=== PATIENT | female | born 1960 | race Caucasian/White ===

== ENCOUNTER 2016-12-22 23:30 | Emergency (ER) | payer OTHER ==
--- NOTE | ~2016-12-22 | CR21 ---
[facility]. [facility] A Service of [facility] & [facility] RADIOLOGY TEXT RESULTS PATIENT: WILD GAMEZ LOCATION: SED : 58 UNIT #: [id number] AGE: [address]: ANGEL LUIS LOAIZA PA-C SEX: F ORDER DR: [id number] [address] [address] [id number] E MR#: [id number] Acc #: [id number] NAME: WILD GAMEZ : 1960 SEX: F STUDY DATE/TIME: 12/23/2016 0:48 UNIT: SED ROOM: STUDY DESCRIPTION: CR Ankle Min 3 Views Rt Attending Physician: Angel Luis Loaiza Pa-C Ordering Physician: Angel Luis Loaiza Pa-C Primary Care Physician: Nelson Doe M.D. MEDICAL IMAGING REPORT This report is preliminary unless electronic signature is present. EXAM Right ankle series, 12/23/2016 HISTORY 56-year-old female in the ED with right ankle pain and swelling after injury. Fell down steps at 10:30 p.m. yesterday. TECHNIQUE Three-view right ankle series. FINDINGS Mild lateral soft tissue swelling. The exam is otherwise negative. No visible fracture, dislocation or other osseous abnormality. IMPRESSION Lateral soft tissue swelling. Right ankle series is otherwise negative. Dictated by... Otoniel Adams M.D. THIS IS AN ELECTRONICALLY VERIFIED REPORT Otoniel Adams M.D. at 12/23/2016 10:18 PM Chelsy TD: 12/23/2016 02:26 JOB #: [id number] MEDICAL IMAGING REPORT Page 1 of 1
== END 2016-12-23 01:38 | disposition home or self-care (01) ==
LOC: SED 23:30
DX: S93.401A Sprain of unspecified ligament of right ankle, initial encounter (principal); S93.601A Unspecified sprain of right foot, initial encounter; S60.812A Abrasion of left wrist, initial encounter; S80.211A Abrasion, right knee, initial encounter; F17.200 Nicotine dependence, unspecified, uncomplicated; W10.9XXA Fall (on) (from) unspecified stairs and steps, initial encounter; Y92.009 Unspecified place in unspecified non-institutional (private) residence as the place of occurrence of the external cause
CPT/HCPCS: 29515; 73610; 99283

== ENCOUNTER → 2017-04-04 | Outpatient (CLI) | payer OTHER ==
--- NOTE | ~2017-04-04 | MY11 ---
[facility] A Service of [facility] RADIOLOGY TEXT RESULTS PATIENT: WILD GAMEZ LOCATION: [facility] : 58 UNIT #: [id number] AGE: [address]: Nelson Doe MD SEX: F ORDER DR: [id number] [address] [address] [id number] O MR#: [id number] Acc #: [id number] NAME: WILD GAMEZ : 1960 SEX: F STUDY DATE/TIME: 04/04/2017 12:14 UNIT: [facility] ROOM: STUDY DESCRIPTION: MY Mammogram Screening Dig Miguel Attending Physician: Nelson Doe M.D. Referring Physician: Nelson Doe M.D. Ordering Physician: Nelson Doe M.D. Primary Care Physician: Nelson Doe M.D. MEDICAL IMAGING REPORT This report is preliminary unless electronic signature is present. EXAM Digital screening mammogram, 04/04/2017, [facility]. HISTORY 57-year-old woman, no risk elevation. Previous right breast biopsy. Annual screen. COMPARISON Mammograms date to 08/01/2007 with most recent 03/08/2016. TECHNIQUE Digital imaging of each breast was completed utilizing screening protocol. Review includes FDA-approved CAD device. FINDINGS Breast parenchyma remains moderately dense and somewhat heterogeneous. I see no interval occurring breast mass. There are no suspicious mass characteristics and no interval occurring microcalcifications. There is no interval occurring architectural disturbance. IMPRESSION Negative mammogram. Annual screening recommended. Patients over the age of 40 are entered into a reminder system with target due date for the next mammogram. A result letter will also be sent to the patient. BIRADS: 1 Negative Dictated by... [facility] A Service [facility] RADIOLOGY TEXT RESULTS PATIENT: WILD GAMEZ LOCATION: [facility] : 58 UNIT #: [id number] AGE: [address]: Nelson Doe MD SEX: F ORDER DR: Richard Castillo M.D. THIS IS AN ELECTRONICALLY VERIFIED REPORT Richard Castillo M.D. at 04/05/2017 8:08 AM ADELSO/lamine TD: 04/04/2017 16:26 JOB #: [id number] MEDICAL IMAGING REPORT Page 1 of 1
== END | disposition home or self-care (01) ==
LOC: SMAM 11:39
DX: Z12.31 Encounter for screening mammogram for malignant neoplasm of breast (principal); Z98.890 Other specified postprocedural states
CPT/HCPCS: G0202